=== PATIENT | female | born 1980 | race Two or more races ===

== ENCOUNTER 2025-04-28 02:24 | Emergency (ER) | payer OTHER, MEDICAID, SELFPAY ==
[2025-04-28 02:25] VITALS: BP 169/115; PULSE 100; RESP 20; TEMP 36.9; O2SAT 97
--- NOTE | 2025-04-28 02:53 | XR_ITS ---
Examination: Abdomen sonogram, Limited Date and time of exam: April 28, 2025 0416 hours INDICATIONS: Right upper abdominal pain and vomiting today Technique: Real-time tiwari scale transabdominal sonographic images of the upper abdomen obtained. Findings: Cholelithiasis, normal gallbladder wall Normal common bile duct 0.4 cm Pancreatic head 2.1 cm Liver 16.9 cm no liver lesions Normal hepatopedal portal venous Patent IVC IMPRESSION: Cholelithiasis
[2025-04-28 03:05] LABS: Collection Type, Urine Clean Catch
--- NOTE | 2025-04-28 03:18 | EDNOTE_ITS ---
<Statement entered by Abby Sanderson MD - 04/28/25 18:31> As co-signing physician, I was present and available for consult prn. I concur with the plan and care as documented by the midlevel provider. ED Abdominal Pain RME/HPI General Chief Complaint: Abdominal Pain Stated complaint: severe abdominal pain since yesterday morning Time seen by provider: 04/28/25 02:52 Arrival date/time: 04/28/25 02:24 45F with history of appendectomy and drug use presents to ED with 2 days of RUQ/epigastric pain and N/V. Limitations: no limitations Related Data Home Medications ?Medication ?Instructions ?Recorded ?Confirmed hydrocodone 5 mg-acetaminophen 325 1 tab PO Q6H PRN Pa in 04/10/21 04/10/21 mg tablet Previous Rx's ?Medication ?Instructions ?Recorded omeprazole 20 mg tablet,delayed 20 mg PO QDAY #30 tabs 12/26/20 release hydrocodone 5 mg-acetaminophen 325 1 tab PO Q8H PRN pa in #14 tabs 04/10/21 mg tablet ibuprofen 800 mg tablet (IBU) 800 mg PO TID PRN pain # 30 tabs 04/10/21 azithromycin 250 mg tablet 250 mg PO QDAY #6 tabs 08/08 (Zithromax Z-Tom) dexamethasone 6 mg tablet 6 mg PO Q24H #14 tabs rizatriptan 10 mg tablet (Maxalt) 10 mg PO Q2H PRN minna sylvia headache 11/21/23 #20 tabs cyclobenzaprine 10 mg tablet 10 mg PO HS #14 tabs 06/18 01/11 meloxicam 7.5 mg tablet 7.5 mg PO QDAY #14 tabs 06/18 01/11 ondansetron 4 mg disintegrating 4 mg PO Q8H PRN nausea and 04/28/25 tablet vomiting #14 tabs Allergies Allergy/AdvReac Type Severity Reaction Status Date / Time august flavor Allergy Severe HIVES Verified 06/29/24 10:24 Review of Systems Review of Systems Systems Reviewed: All systems reviewed, normal except as documented Constitutional Constitutional: Reports system reviewed and no additional complaints, except as documented, Denies fever(s) and Denies headache(s) ENT Ears, Nose, Mouth, and Throat: Denies disequilibrium and Denies headache(s) Cardiovascular Cardiovascular: Reports system reviewed and no additional complaints, except as documented, Denies chest pain and Denies dyspnea Respiratory Respiratory: Reports system reviewed and no additional complaints, except as documented, Denies cough and Denies dyspnea Gastrointestinal Gastrointestinal: Reports system reviewed and no additional complaints, except as documented, Reports as per HPI, Reports abdominal pain, Denies nausea and Reports vomiting Neurologic Neurologic: Reports system reviewed and no additional complaints, except as documented, Denies confusion, Denies disequilibrium and Denies headache(s) Psychiatric Psychiatric: Denies confusion Past Medical History Past Medical History CARDIAC: Negative Cardiac Disorders RESPIRATORY: Negative Asthma GENITOURINARY: Negative Renal Disease ENDOCRINE: Negative Diabetes Mellitus Type 2 HEMATOLOGIC: Negative Sickle Cell Disease Social History SMOKING STATUS: Never smoker ED Exam General Limitations: Present no limitations General appearance: Present alert and in no apparent distress Head Head exam: Present atraumatic Eye Eye exam: Present normal appearance, PERRL and EOMI ENT ENT exam: Present normal exam, normal oropharynx and mucous membranes moist Neck Neck exam: Present normal inspection, full ROM and trachea midline Chest Chest inspection: Present normal inspection and symmetric chest wall rise Respiratory Respiratory exam: Present normal lung sounds bilaterally Cardiovascular Cardiovascular exam: Present regular rate, normal rhythm and normal heart sounds Abdominal Exam Abdominal exam: Present soft and normal bowel sounds Abdominal tenderness: Present RUQ, epigastrium and mild Extremities Exam Extremities exam: Present normal inspection and full ROM Back Exam Back exam: Present normal inspection and full ROM Neurological Exam Neurological exam: Present alert, oriented X3 and CN II-XII intact Psychiatric Psychiatric exam: Present normal affect and normal mood Skin Skin exam: Present warm, dry, intact and normal color Course Quality Measures none Orders Category Date Time Status US gall bladder Stat Exams 04/28/25 02:53 Taken Alcohol, Blood Medical Stat Lab 04/28/25 03:16 Completed CBC Stat Lab 04/28/25 03:16 Completed CMP [Comprehensive Metabolic Panel] Stat Lab 04/28/25 03:16 Completed HCG Qualitative,Urine Stat Lab 04/28/25 02:57 Completed Lipase Stat Lab 04/28/25 03:16 Completed Urinalysis, C/S if Indicated Stat Lab 04/28/25 02:57 Completed Morphine Inj Med 04/28/25 02:53 Discontinued 5 mg IM X1 ONE Ondansetron Odt [Zofran Odt] Med 04/28/25 02:53 Discontinued 4 mg PO X1 ONE Vital Signs Vital signs: Vital Signs Temperature 98.4 F 04/28/25 02:25 Pulse Rate 100 04/28/25 02:25 Respiratory Rate 20 04/28/25 02:25 Blood Pressure 169/115 H 04/28/25 02:25 Pulse Oximetry (%) 97 04/28/25 02:25 Oxygen Delivery Method Room Air 04/28/25 02:25 O2 at 97% on RA and WNLs Abdominal Pain MDM MDM Narrative MDM Narrative:: 45F with history of appendectomy and drug use presents to ED with 2 days of RUQ/epigastric pain and N/V. Physical exam reveals RUQ/epigastric tenderness. Patient is afebrile, calm, and alert. US gallstones, but no inflammation. CMP unremarkable. Lipase normal. No leukocytosis. Meds improved symptoms. Patient data External records reviewed:: [facility] previous records Clinical information provided by:: patient Social determinants that could affect healthcare access:: substance use Patient has the following chronic illnesses:: drug use How is presenting disease/condition affected by chronic disease/condition?: exacerbated by Evaluation data The following diagnostics were reviewed and interpreted by me:: lab results and radiology exam(s) Lab and/or radiology exams considered but not ordered:: ordered Interpretation Summary: above Medications / Prescriptions Medications or Prescriptions considered but not ordered:: ordered Medication administrations:: Medication Administration History Discontinued Medications Morphine Sulfate (Morphine Sulf Inj 10 Mg/Ml Vial) 5 mg IM X1 ONE Stop: 04/28/25 02:54 Last Admin: 04/28/25 03:44 Dose: 5 mg Documented By: SE Ondansetron HCl (Ondansetron Odt 4 Mg Tabrap) 4 mg PO X1 ONE; Protocol Stop: 04/28/25 02:54 Last Admin: 04/28/25 03:42 Dose: 4 mg Documented By: SE above Consultations Consultation(s) initiated? (list below): No Diagnosis Differential diagnosis abdominal pain: abdominal pain, acute appendicitis, calculus of kidney, constipation, diverticulitis, endometriosis, gastroenteritis, pancreatitis, small bowel obstruction and other (biliary disease) Most likely diagnosis given after review of the tests above:: gallstones Admission Indicated Admission indicated?: not indicated Admission Request Was there a request for admission?: No Disposition Plan Disposition Plan: Discharge Discharge Attestation Discharge Attestation: The patient and all family members were given an opportunity to ask questions and understood the discharge instructions. Discharge instructions specifically effects, indications for sooner follow up or return to the emergency department, and the expected course of current diagnosis. Patient condition: Stable Discharge Plan Plan Patient Disposition: HOME (Self Care) Discharge Disposition comment: Stable Prescriptions/Referrals Prescriptions/Med Rec: New ondansetron 4 mg tablet,disintegrating 4 mg PO Q8H PRN (Reason: nausea and vomiting) Qty: 14 0RF No Action hydrocodone-acetaminophen [[place]] 5-325 mg Tablet 1 tab PO Q6H PRN (Reason: Pain) hydrocodone-acetaminophen 5-325 mg tablet 1 tab PO Q8H MDD 3 PRN (Reason: pain) Qty: 14 0RF ibuprofen [IBU] 800 mg tablet 800 mg PO TID PRN (Reason: pain) Qty: 30 0RF omeprazole 20 mg tablet,delayed release (DR/EC) 20 mg PO QDAY Qty: 30 0RF azithromycin [Zithromax Z-Tom] 250 mg tablet 250 mg PO QDAY Qty: 6 0RF dexamethasone 6 mg tablet 6 mg PO Q24H Qty: 14 0RF Rx Instructions: for up to 10 days rizatriptan [Maxalt] 10 mg tablet 10 mg PO Q2H PRN (Reason: migraine headache) Qty: 20 0RF Rx Instructions: do not exceed 3 doses per 24 hrs cyclobenzaprine 10 mg tablet 10 mg PO HS Qty: 14 0RF meloxicam 7.5 mg tablet 7.5 mg PO QDAY Qty: 14 0RF Referrals: Werner William MD [Primary Care Provider] - In 1 week Problem List Clinical Impression: Gallstones Patient/Caregiver Discharge Instructions Education Materials: ED Gallstones with Biliary Colic Additional Instructions: Please follow-up with PCP within 24-48 hours and return immediately if symptoms worsen. Can see PCP for referral to general surgeon for elective outpatient gallbladder removal. Print Language: [place] Stand Alone Forms: Patient Portal Info Letter PA/FARM RANCHER Supervising Physician PA/FARM R[employer]CHER Supervising Physician: Dr. Sanderson
[2025-04-28 03:19] LABS: Bacteria,Urine Rare; Bilirubin,Urine Negative (Negative); Blood,Urine Negative (Negative); Clarity,Urine Clear (Clear/Hazy); Color,Urine Lt-Yellow (Lt Yel-Yel); Culture Indicated,Urine Not Indicated; Glucose, Urine Negative (Negative); Ketones,Urine Negative (Negative); Leukocyte Esterase,Urine Negative (Negative); Nitrite,Urine Negative (Negative); Protein,Urine Negative (Neg - Trace); RBC,Urine 2 /hpf (0-3); Specific Gravity,Urine 1.014 (1.001-1.035); Squamous Epithelial Cell,Urine 1 /hpf (0-5); Urobilinogen,Urine Negative mg/dL (0.0-1.0); WBC,Urine 1 /hpf (0-5)
[2025-04-28 03:24] LABS: HCG Qualitative,Urine Negative
[2025-04-28 03:30] LABS: Basophils % (Auto) 0 % (0-2.5); Eosinophils # (Auto) 0.1 Thou/mm3 (0.0-0.5); Eosinophils % (Auto) 2 % (0-10); Immature Granulocytes % (Auto) 0 % (0-0); Immature Granulocytes Auto 0.02 Thou/mm3 (0.00-0.00); Lymphocytes % (Auto) 27 % (10-50); Mean Corpuscular HGB Conc 35.3 g/dl (31.0-37.0); Mean Corpuscular Hemoglobin 27.4 pg (25.0-35.0); Mean Corpuscular Volume 78 fL (80-100); Monocytes # (Auto) 0.5 Thou/mm3 (0.0-0.8); Monocytes % (Auto) 7 % (0-12); Neutrophils # (Auto) 4.7 Thou/mm3 (1.8-7.7); Neutrophils % (Auto) 64 % (37-80); Nucleated Red Blood Cell % 0 /100 WBC (0); Platelet Count 237 Thou/mm3 (140-440); RDW Standard Deviation 38.1 fL (36.4-46.3); Red Blood Count 4.38 Miln/mm3 (4.00-5.20); White Blood Count 7.3 Thou/mm3 (3.6-11.0)
[2025-04-28] MEDS: ONDANSETRON ODT 4 MG TABRAP PO (03:42)
[2025-04-28] MEDS: MORPHINE SULF INJ 10 MG/ML VIAL 5 MG IM (03:44)
[2025-04-28 03:59] LABS: Alanine Aminotransferase 45 U/L (10-49); Albumin, Serum 4.3 gm/dL (3.5-5.0); Alcohol, Blood Medical < 3.0 mg/dL (0-10.0); Alkaline Phosphatase 79 U/L (46-116); Anion Gap 9 (7-16); BUN/Creatinine Ratio 10 Ratio (12-20); Bilirubin,Total 0.3 mg/dL (0.3-1.2); Blood Urea Nitrogen 9 mg/dL (9-23); Calcium 9.3 mg/dL (8.3-10.6); Calcium (Corrected) 9.3 mg/dL (8.5-10.1); Chloride 103 mMol/L (98-107); Creatinine (Component) 0.9 mg/dL (0.6-1.3); Globulin 2.2 gm/dL (2.3-3.5); Glucose 128 mg/dL (74-106); Lipase 44 U/L (12-53); Osmolality,Calculated 278 (275-295); Potassium 4.1 mMol/L (3.4-5.1); Sodium 139 mMol/L (136-145); Total Protein 6.5 gm/dL (5.7-8.2); eGFR > 60 See Note
--- NOTE | 2025-04-28 05:42 | PRELIM_ITS ---
Gallbladder ultrasound. April 28, 2025 at 0416 hours Clinical history: Right upper quadrant pain. Technique: Grayscale and color flow images of the abdomen are provided. Comparison: No prior study is available for comparison. Findings: The visualized liver is normal in echogenicity without mass or ductal dilatation. Multiple calculi are noted within the gallbladder, without evidence of gallbladder wall thickening (wall = 2.2 mm) or pericholecystic fluid. The common bile duct is normal in caliber at 4.4 mm. No free fluid is demonstrated on the submitted images. No sonographic evidence of hepatic, biliary, or pancreatic mass or obstruction. Impression: Cholelithiasis without evidence of acute cholecystitis. Report Electronically Signed By: Sterling Barton 04/28/2025 5:42:22 AM [EST]
[2025-04-28 05:44] VITALS: BP 156/93; PULSE 83; RESP 18; TEMP 36.7; O2SAT 95
== END 2025-04-28 05:50 | disposition home or self-care (01) ==
PROVIDERS: Physician Assistant; Emergency Provider Emergency Medicine; PCP Family Medicine
DX: K80.20 Calculus of gallbladder without cholecystitis without obstruction (principal)
CPT/HCPCS: 36415; 76705; 80053; 80320; 81001; 81025; 83690; 85025; 96372; 99284; J2270; Q0162; G0480

== ENCOUNTER 2025-05-18 10:25 | Day surgery (SDC) | payer MEDICAID, SELFPAY ==
[2025-05-14 09:39] VITALS: BMI 34.2
[2025-05-14 10:28] LABS: Basophils # (Auto) 0.0 Thou/mm3 (0.0-0.2); Basophils % (Auto) 0 % (0-2.5); Eosinophils # (Auto) 0.1 Thou/mm3 (0.0-0.5); Eosinophils % (Auto) 1 % (0-10); Hematocrit 36.9 % (36.0-46.0); Hemoglobin 12.4 g/dL (12.0-16.0); Immature Granulocytes Auto 0.03 Thou/mm3 (0.00-0.00); Lymphocytes # (Auto) 2.0 Thou/mm3 (1.0-4.8); Lymphocytes % (Auto) 28 % (10-50); Mean Corpuscular HGB Conc 33.6 g/dl (31.0-37.0); Mean Corpuscular Hemoglobin 27.2 pg (25.0-35.0); Mean Corpuscular Volume 81 fL (80-100); Monocytes # (Auto) 0.4 Thou/mm3 (0.0-0.8); Monocytes % (Auto) 6 % (0-12); Neutrophils # (Auto) 4.5 Thou/mm3 (1.8-7.7); Neutrophils % (Auto) 64 % (37-80); Nucleated Red Blood Cell # 0.00 Thou/mm3 (0.00-0.00); Nucleated Red Blood Cell % 0 /100 WBC (0); Platelet Count 281 Thou/mm3 (140-440); RDW Standard Deviation 40.7 fL (36.4-46.3); Red Blood Count 4.56 Miln/mm3 (4.00-5.20); White Blood Count 7.0 Thou/mm3 (3.6-11.0)
[2025-05-14 10:47] LABS: HCG,Qualitative Serum Negative
[2025-05-14 10:48] LABS: Alanine Aminotransferase 61 U/L (10-49); Albumin, Serum 4.7 gm/dL (3.5-5.0); Albumin/Globulin Ratio 1.8 (1.2-2.2); Alkaline Phosphatase 79 U/L (46-116); Anion Gap 8 (7-16); Aspartate Amino Transferase 48 U/L (0-34); BUN/Creatinine Ratio 15 Ratio (12-20); Bilirubin,Total 0.3 mg/dL (0.3-1.2); Blood Urea Nitrogen 12 mg/dL (9-23); Calcium 9.9 mg/dL (8.3-10.6); Calcium (Corrected) 9.9 mg/dL (8.5-10.1); Carbon Dioxide 25.2 mMol/L (20.0-31.0); Chloride 104 mMol/L (98-107); Creatinine (Component) 0.8 mg/dL (0.6-1.3); Estimated Creatinine Clearance 113.4 mL/min (>60); Globulin 2.6 gm/dL (2.3-3.5); Glucose 105 mg/dL (74-106); Osmolality,Calculated 273 (275-295); Potassium 4.6 mMol/L (3.4-5.1); Sodium 137 mMol/L (136-145); Total Protein 7.3 gm/dL (5.7-8.2); eGFR > 60 See Note
--- NOTE | 2025-05-17 14:42 | SUR.PREOP ---
Pt notified to come in at 1100 tomorrow.
[2025-05-18] VITALS (9 sets, daily range): BP systolic 114–143; BP diastolic 72–103; PULSE 76–91; RESP 13–21; TEMP 36.6–36.9; O2SAT 94–98; BMI 33.4
[2025-05-18] MEDS: RINGERS LACTATED 1000 ML 1,000 ML 20 ML IV (10:45)
--- NOTE | 2025-05-18 11:49 | SUR.PHASEI ---
1149 patient arrived to recovery resting comfortably in [facility], on oxygen 10L via oxy mask with an oral airway in place, breathing unlabored, vital signs stable, dressing intact to abdomen; dermabond, no bleeding noted, report received from Ervin FLORES and Lisandra SANTOYO
--- NOTE | 2025-05-18 12:06 | PD.SUROPNT ---
Date of Procedure 05/18/25 Pre Op Diagnosis Symptomatic cholelithiasis Post Op Diagnosis Cholelithiasis with cholecystitis Fatty liver Procedure Laparoscopic cholecystectomy Findings Moderately distended gallbladder with multiple gallstones and chronic cholecystitis. Fatty appearing liver Procedure Description Patient was brought into the operating room in supine position. After administration of general endotracheal anesthesia abdomen was prepped and draped in standard surgical manner. A Veress needle was inserted through the umbilicus and pneumoperitoneum was obtained up to 15 mmHg. The Veress needle was then removed, a 5 mm infraumbilical incision was made and the 5mm trocar was inserted. Laparoscopic camera was placed. Under direct visualization a laparoscopic camera a 10 mm trocar was placed in subxiphoid and two 5 mm trocars placed in right upper quadrant. The liver was not enlarged however it was fatty in appearance. The gallbladder was identified and was noted to be moderately distended with multiple gallstones and chronic cholecystitis. It was retracted cephalad and laterally. Dissection started near the infundibulum of gallbladder where cystic duct and gallbladder junction clearly identified. The cystic duct was circumferentially dissected off the peritoneum and surrounding inflammatory tissue. The critical view of safety was clearly demonstrated. Cystic duct was then divided between 2 endoclips proximally and one distally. The cystic artery was similarly dissected and divided. The gallbladder was then from the liver bed using electrocautery. The gallbladder was then placed inside an Endo Catch and removed from the abdomen utilizing subxiphoid trocar site. The area was copiously and thoroughly washed and irrigated, all the fluid was suctioned and the suction fluid returned clear. Hemostasis achieved using electrocautery. Endoclips noted be in place and intact without any bleeding or any leakage. Hemostasis was adequate and satisfactory. The subxiphoid trocar sites fascial defect was closed with 0 Vicryl using Endo Closure device. Instruments and trocars removed, pneumoperitoneum was evacuated and the incisions closed with 4-0 Monocryl in subcuticular fashion. Instrument needle and sponge counts were all reported to be correct X2. Patient tolerated the procedure well, was extubated, breathing spontaneously and without difficulty and was transferred to postanesthesia care in stable condition. Anesthesia GETA and local Pathology / specimen Other (Gallbladder and contents) Estimated Blood Loss 10 Condition Stable Disposition PACU Surgeon Josue Campos MD Surgical Staff Operation Date: 05/18/25 13:15 Case Staff EXPERIENTIAL THERAPIST: Christian Macdonald manager utility: Amol Pulido
[2025-05-18] MEDS: ONDANSETRON INJ 2 MG/ML INJ 2 ML 4 MG IVP (12:11)
[2025-05-18] MEDS: ACETAMINOPHEN IVPB 1,000 MG/100 ML VIAL 250 MG IV (12:14)
--- NOTE | 2025-05-18 12:20 | SUR.PHASEI ---
1220 Report given to Cinthya Rincon RN
--- NOTE | 2025-05-18 12:20 | SUR.PHASEI ---
pt awake, alert, able to follow commands, breathing unlabored, dressing to abdomen clean, dry, and intact, report from Cinthya Villasenor RN
[2025-05-18] MEDS: fentaNYL CIT INJ 50 mCg/ML AMP 2ML IVP ×2 (12:26→12:36)
--- NOTE | 2025-05-18 12:52 | SUR.PHASEII ---
1252 Report received from Cinthya Rincon RN
--- NOTE | 2025-05-18 12:52 | SUR.PHASEII ---
pt awake, alert, able to follow commands, tolerating oral fluids without difficulty swallowing or n/v, VS stable, dressing to abdomen clean, dry, and intact, report to Cinthya Villasenor RN
--- NOTE | 2025-05-18 13:00 | SUR.PHASEII ---
1300 Verbal order read-back received from Dr. Campos for [place] 10/325 oral tab for pain, will place order in EMR and administer per MD order
--- NOTE | 2025-05-18 13:28 | SUR.PHASEII ---
1328 Patient meets discharge criteria from recovery, awake and alert, breathing unlabored, vital signs stable, dressing intact; no bleeding noted, per patient her pain is tolerable; given pain pill prior to discharge, assisted with dressing into her clothing by this underwriter solicitation director, discharge instructions given to patient and patient friend over speaker phone as patients friend had small child, instructions signed by her friend at car-side, patient given all her belongings prior to discharge, transported via wheelchair and left in a private vehicle.
== END 2025-05-18 13:32 | disposition home or self-care (01) ==
PROVIDERS: PCP Family Medicine; Referring Provider Surgery; Visit Provider Surgery
PROC: 0FT44ZZ Resection of Gallbladder, Percutaneous Endoscopic Approach (ICD-10-PCS; CPT 47562; principal; 2025-05-18 13:00)
DX: K80.10 Calculus of gallbladder with chronic cholecystitis without obstruction (principal); K76.0 Fatty (change of) liver, not elsewhere classified; Z90.49 Acquired absence of other specified parts of digestive tract
CPT/HCPCS: 47562; 36415; 80053; 84703; 85025; A4217; A4649; J0131; J0694; J1100; J1885; J2250; J2405; J2704; J3010; J3490; J7120; A9270